=== PATIENT | male | born 1960 | race Caucasian/White ===

== ENCOUNTER 2021-05-22 19:41 | Inpatient (IN) | payer SELFPAY ==
[2021-05-22 19:46] VITALS: BMI 34.4
[2021-05-22] MEDS ORDERED: Zolpidem Tartrate 5 MG TAB PO PRN (20:12)
[2021-05-22] MEDS ORDERED: Calcium Carbonate 500 MG ChewTAB PO PRN (20:12)
[2021-05-22] MEDS ORDERED: FLU VACC QS2021-22(6MOS UP)/PF 60 MCG/0.5 ML SYRINGE IM ONE (20:15)
[2021-05-22] MEDS ORDERED: Losartan Potassium 50 MG TAB PO SCH (20:30)
[2021-05-22] MEDS ORDERED: Carvedilol 3.125 MG TAB PO SCH (20:30)
[2021-05-22] MEDS: Atorvastatin Calcium 40 MG TAB PO SCH (20:37)
[2021-05-22] MEDS ORDERED: Amlodipine 5 MG TAB PO SCH (21:00)
[2021-05-22] MEDS: hydrALAZINE 20 MG/ML VIAL SLOW IVP PRN (21:37)
[2021-05-22] MEDS ORDERED: Nitroglycerin 2% Ointment 1 INCH/1 GM Packet TOP SCH (22:15)
[2021-05-22] MEDS ORDERED: Morphine 4 MG/ML VIAL SLOW IVP SCH (22:15)
[2021-05-23] MEDS: hydrALAZINE 20 MG/ML VIAL SLOW IVP PRN ×2 (01:34→10:55)
[2021-05-23 04:26] LABS: Anion Gap 12 mmol/L (10-20); BUN (Urea Nitrogen) 13 mg/dL (8.4-25.7); Calc. Creatinine Clearance 147 mL/min (70-130); Calcium 8.9 mg/dL (7.8-10.44); Carbon Dioxide 22 mmol/L (22-29); Cardiac Risk 3.8 (Less than 4.5); Chloride 108 mmol/L (98-107); Cholesterol 171 mg/dl (< 200 Desired); Glucose 122 mg/dL (70-105); HDL Cholesterol 45 mg/dL (>60 Neg Risk); LDL Cholesterol, Calculated 107 mg/dL; Potassium 3.8 mmol/L (3.5-5.1); Sodium 138 mmol/L (136-145); Triglycerides 96 mg/dL (Less than 150)
[2021-05-23] MEDS: HYDROcodone/Acetaminophen 5/325 mg Tablet PO PRN ×3 (05:25→17:59)
[2021-05-23] MEDS ORDERED: Potassium Chloride 20 MEQ TAB PO SCH (05:45)
[2021-05-23] MEDS: Aspirin 81 mg Enteric Coated Tablet PO SCH (08:38)
[2021-05-23] MEDS: Carvedilol 3.125 MG TAB PO SCH ×2 (08:38→16:57)
[2021-05-23] MEDS: Hydrochlorothiazide 25 MG TAB PO SCH (08:38)
[2021-05-23] MEDS: Losartan Potassium 50 MG TAB PO SCH (08:38)
[2021-05-23] MEDS: Enoxaparin Sodium 40 MG/0.4 ML SYRINGE SC SCH (08:39)
[2021-05-23] MEDS ORDERED: Folic Acid 1 MG TAB PO SCH (09:00)
[2021-05-23] MEDS ORDERED: Thiamine 100 MG TAB PO SCH (09:00)
[2021-05-23] MEDS ORDERED: Multivitamin W/ Minerals 1 TAB PO SCH (09:00)
[2021-05-23] MEDS: Acetaminophen 325 MG TAB PO PRN ×2 (10:51→16:10)
[2021-05-23] MEDS: Ondansetron PF 4 MG/2 ML Vial IVP PRN (12:50)
[2021-05-23] MEDS ORDERED: Lorazepam 2 MG/ML VIAL SLOW IVP SCH (13:00)
[2021-05-23] MEDS ORDERED: hydrALAZINE 20 MG/ML VIAL SLOW IVP SCH (13:15)
[2021-05-23] MEDS ORDERED: niCARdipine 20MG In NaCl 20 MG/200 ML BAG IVPB SCH (14:00)
[2021-05-23] MEDS: niCARdipine 20MG In NaCl 20 MG/200 ML BAG IVPB SCH ×6 (14:05→22:21)
[2021-05-23] MEDS: Atorvastatin Calcium 40 MG TAB PO SCH (21:34)
[2021-05-24] MEDS: hydrALAZINE 20 MG/ML VIAL SLOW IVP PRN ×3 (05:07→12:37)
[2021-05-24] MEDS ORDERED: Lorazepam 2 MG/ML VIAL IM PRN (07:43)
[2021-05-24] MEDS ORDERED: Lorazepam 1 MG TAB PO PRN (07:43)
[2021-05-24] MEDS ORDERED: Ondansetron ODT 4 MG TAB PO PRN (07:43)
[2021-05-24] MEDS ORDERED: Electrolyte Replacement Protocol 1 EACH FS SCH (07:45)
[2021-05-24] MEDS ORDERED: Electrolyte Replacement Protocol FS PRN (08:00)
[2021-05-24 08:24] LABS: #Monocytes 0.7 10x3/uL (0.0-1.1); #Neutrophils 7.9 10x3/uL (1.5-8.4); %Basophils 0.2 % (0.0-2.0); %Eosinophils 0.1 % (0.0-6.0); %Lymphocytes 8.4 % (18.0-47.0); %Monocytes 6.9 % (0.0-10.0); %Neutrophils 84.2 % (40.0-75.0); Hemoglobin 15.5 g/dL (13.5-17.5); Mean Corpuscular HGB CONC 34.9 g/dL (32.0-36.0); Mean Corpuscular Hemoglobin 33.4 pg (27.0-33.0); Mean Corpuscular Volume 95.7 fl (81.2-95.1); Mean Platelet Volume 10.5 fl (7.4-10.4); Platelet Count 192 10x3/uL (150-450); RBC Distribution Width 11.6 % (11.5-14.5); Red Blood Cell (RBC) Count 4.64 10x6/uL (4.32-5.72); White Blood Cell (WBC) Count 9.4 10x3/uL (3.5-10.5)
[2021-05-24 09:10] LABS: ALT (SGPT) 29 U/L (8-55); AST (SGOT) 24 U/L (5-34); Albumin 4.1 g/dL (3.5-5.0); Alkaline Phosphatase 46 U/L (40-110); Anion Gap 14 mmol/L (10-20); BUN (Urea Nitrogen) 12 mg/dL (8.4-25.7); Bilirubin, Direct 0.4 mg/dL (0.1-0.3); Bilirubin, Total 1.2 mg/dL (0.2-1.2); Calc. Creatinine Clearance 151 mL/min (70-130); Carbon Dioxide 23 mmol/L (22-29); Chloride 103 mmol/L (98-107); Globulin 3.5 g/dL (2.4-3.5); Glucose 122 mg/dL (70-105); Phosphorus 3.1 mg/dL (2.3-4.7); Protein, Total 7.6 g/dL (6.0-8.3); Sodium 136 mmol/L (136-145)
[2021-05-24] MEDS: Thiamine HCl 200 MG/2 ML VIAL SLOW IVP SCH (09:30)
[2021-05-24] MEDS ORDERED: Magnesium 2 GM/50 ML 2 GM in Premix Bag 1 BAG IVPB SCH (09:30)
[2021-05-24] MEDS: Multivit, Therapeutic 1 TAB PO SCH (09:31)
[2021-05-24] MEDS: Enoxaparin Sodium 40 MG/0.4 ML SYRINGE SC SCH (09:31)
[2021-05-24] MEDS: Aspirin 81 mg Enteric Coated Tablet PO SCH (09:31)
[2021-05-24] MEDS: Losartan Potassium 50 MG TAB PO SCH (09:31)
[2021-05-24] MEDS: Folic Acid 1 MG TAB PO SCH (09:31)
[2021-05-24] MEDS: Hydrochlorothiazide 25 MG TAB PO SCH (09:32)
[2021-05-24] MEDS: Carvedilol 3.125 MG TAB PO SCH ×2 (09:32→17:57)
[2021-05-24] MEDS: HYDROcodone/Acetaminophen 5/325 mg Tablet PO PRN (09:32)
[2021-05-24] MEDS: Ondansetron PF 4 MG/2 ML Vial IVP PRN (09:56)
[2021-05-24] MEDS: niCARdipine 20MG In NaCl 20 MG/200 ML BAG IVPB SCH ×2 (14:00→19:58)
[2021-05-24] MEDS: Lorazepam 1 MG TAB PO SCH ×2 (17:58→19:59)
[2021-05-24] MEDS: Atorvastatin Calcium 40 MG TAB PO SCH (20:53)
[2021-05-24] MEDS: Acetaminophen 325 MG TAB PO PRN (21:18)
[2021-05-25] MEDS: niCARdipine 20MG In NaCl 20 MG/200 ML BAG IVPB SCH ×2 (00:07→04:42)
[2021-05-25] MEDS: Lorazepam 1 MG TAB PO SCH ×4 (03:51→20:25)
[2021-05-25 04:22] LABS: Magnesium 2.3 mg/dL (1.6-2.6)
[2021-05-25] MEDS ORDERED: Lorazepam 1 MG TAB PO PRN (07:43)
[2021-05-25] MEDS: Aspirin 81 mg Enteric Coated Tablet PO SCH (07:43)
[2021-05-25] MEDS: Carvedilol 3.125 MG TAB PO SCH ×2 (07:43→16:06)
[2021-05-25] MEDS: Losartan Potassium 50 MG TAB PO SCH (07:43)
[2021-05-25] MEDS: Hydrochlorothiazide 25 MG TAB PO SCH (07:44)
[2021-05-25] MEDS: Multivit, Therapeutic 1 TAB PO SCH (07:45)
[2021-05-25] MEDS: Folic Acid 1 MG TAB PO SCH (07:45)
[2021-05-25] MEDS: Enoxaparin Sodium 40 MG/0.4 ML SYRINGE SC SCH (07:46)
[2021-05-25] MEDS: Thiamine HCl 200 MG/2 ML VIAL SLOW IVP SCH (09:16)
[2021-05-25] MEDS: hydrALAZINE 20 MG/ML VIAL SLOW IVP PRN ×3 (12:26→22:11)
[2021-05-25] MEDS: Acetaminophen 325 MG TAB PO PRN (12:26)
[2021-05-25] MEDS: HYDROcodone/Acetaminophen 5/325 mg Tablet PO PRN ×2 (14:00→20:24)
[2021-05-25] MEDS ORDERED: Carvedilol 3.125 MG TAB PO SCH (18:30)
[2021-05-25] MEDS: Atorvastatin Calcium 40 MG TAB PO SCH (20:24)
[2021-05-26] MEDS: HYDROcodone/Acetaminophen 5/325 mg Tablet PO PRN ×3 (03:37→17:45)
[2021-05-26] MEDS: hydrALAZINE 20 MG/ML VIAL SLOW IVP PRN ×3 (03:38→20:12)
[2021-05-26 03:40] LABS: ALT (SGPT) 24 U/L (8-55); AST (SGOT) 23 U/L (5-34); Alkaline Phosphatase 43 U/L (40-110); Anion Gap 14 mmol/L (10-20); BUN (Urea Nitrogen) 19 mg/dL (8.4-25.7); Calc. Creatinine Clearance 132 mL/min (70-130); Calcium 8.8 mg/dL (7.8-10.44); Carbon Dioxide 24 mmol/L (22-29); Chloride 100 mmol/L (98-107); Globulin 3.4 g/dL (2.4-3.5); Glucose 117 mg/dL (70-105); Magnesium 2.1 mg/dL (1.6-2.6); Potassium 3.7 mmol/L (3.5-5.1); Protein, Total 7.4 g/dL (6.0-8.3); Sodium 134 mmol/L (136-145)
[2021-05-26 03:47] LABS: %Basophils 0.3 % (0.0-2.0); %Lymphocytes 11.5 % (18.0-47.0); %Monocytes 11.1 % (0.0-10.0); %Neutrophils 76.8 % (40.0-75.0); Hemoglobin 16.5 g/dL (13.5-17.5); Mean Corpuscular HGB CONC 35.3 g/dL (32.0-36.0); Mean Corpuscular Hemoglobin 33.5 pg (27.0-33.0); Mean Corpuscular Volume 94.7 fl (81.2-95.1); Mean Platelet Volume 10.4 fl (7.4-10.4); Platelet Count 228 10x3/uL (150-450); RBC Distribution Width 11.5 % (11.5-14.5); Red Blood Cell (RBC) Count 4.93 10x6/uL (4.32-5.72); White Blood Cell (WBC) Count 9.2 10x3/uL (3.5-10.5)
[2021-05-26 03:59] LABS: Bilirubin, Total 1.4 mg/dL (0.2-1.2)
[2021-05-26] MEDS: Lorazepam 1 MG TAB PO SCH (05:05)
[2021-05-26] MEDS ORDERED: Nitroglycerin 2% Ointment 1 INCH/1 GM Packet ONE (05:17)
[2021-05-26] MEDS ORDERED: Haloperidol Lactate 5 MG/ML VIAL IM SCH (05:30)
[2021-05-26] MEDS ORDERED: Nitroglycerin 2% Ointment 1 INCH/1 GM Packet TOP SCH (05:30)
[2021-05-26] MEDS: Carvedilol 6.25 MG TAB PO SCH ×2 (07:32→16:09)
[2021-05-26] MEDS ORDERED: Lorazepam 1 MG TAB PO PRN (07:43)
[2021-05-26] MEDS: Losartan Potassium 50 MG TAB PO SCH (08:50)
[2021-05-26] MEDS: Lorazepam 0.5 MG TAB PO SCH ×4 (08:50→20:12)
[2021-05-26] MEDS: Enoxaparin Sodium 40 MG/0.4 ML SYRINGE SC SCH (08:51)
[2021-05-26] MEDS: Hydrochlorothiazide 25 MG TAB PO SCH (08:51)
[2021-05-26] MEDS: Folic Acid 1 MG TAB PO SCH (08:51)
[2021-05-26] MEDS: Thiamine HCl 200 MG/2 ML VIAL SLOW IVP SCH (08:51)
[2021-05-26] MEDS: Multivit, Therapeutic 1 TAB PO SCH (08:54)
[2021-05-26] MEDS: Aspirin 81 mg Enteric Coated Tablet PO SCH (08:54)
[2021-05-26] MEDS ORDERED: Hydrochlorothiazide 25 MG TAB PO SCH ×2 (14:36→15:00)
[2021-05-26] MEDS ORDERED: Amlodipine 5 MG TAB PO SCH (18:00)
[2021-05-26] MEDS: niCARdipine 25 MG in Sodium Chloride 0.9% 250 ML 250 ML IVPB SCH ×2 (18:10→21:57)
[2021-05-26] MEDS: Atorvastatin Calcium 40 MG TAB PO SCH (20:12)
[2021-05-27] MEDS: niCARdipine 25 MG in Sodium Chloride 0.9% 250 ML 250 ML IVPB SCH ×12 (00:13→22:33)
[2021-05-27] MEDS: hydrALAZINE 20 MG/ML VIAL SLOW IVP PRN ×3 (00:14→21:02)
[2021-05-27] MEDS: Lorazepam 0.5 MG TAB PO SCH (03:50)
[2021-05-27] MEDS: traZODone HCl 50 MG TAB PO PRN ×2 (03:50→21:01)
[2021-05-27] MEDS: Carvedilol 6.25 MG TAB PO SCH ×2 (07:50→16:20)
[2021-05-27] MEDS: Enoxaparin Sodium 40 MG/0.4 ML SYRINGE SC SCH (07:53)
[2021-05-27] MEDS: Aspirin 81 mg Enteric Coated Tablet PO SCH (07:53)
[2021-05-27] MEDS: Hydrochlorothiazide 25 MG TAB PO SCH (07:54)
[2021-05-27] MEDS: Losartan Potassium 50 MG TAB PO SCH (07:54)
[2021-05-27] MEDS: Multivit, Therapeutic 1 TAB PO SCH (07:54)
[2021-05-27] MEDS: Folic Acid 1 MG TAB PO SCH (07:54)
[2021-05-27 07:59] LABS: ALT (SGPT) 25 U/L (8-55); AST (SGOT) 25 U/L (5-34); Albumin 3.9 g/dL (3.5-5.0); Alkaline Phosphatase 36 U/L (40-110); Anion Gap 14 mmol/L (10-20); BUN (Urea Nitrogen) 22 mg/dL (8.4-25.7); Bilirubin, Total 1.1 mg/dL (0.2-1.2); Calc. Creatinine Clearance 144 mL/min (70-130); Calcium 8.5 mg/dL (7.8-10.44); Carbon Dioxide 21 mmol/L (22-29); Chloride 99 mmol/L (98-107); Globulin 3.2 g/dL (2.4-3.5); Glucose 108 mg/dL (70-105); Potassium 3.1 mmol/L (3.5-5.1); Protein, Total 7.1 g/dL (6.0-8.3); Sodium 131 mmol/L (136-145)
[2021-05-27] MEDS ORDERED: Potassium Bicarbonate/Cit Ac 20 MEQ TAB PO SCH (08:30)
[2021-05-27 08:42] LABS: Acetaminophen Less than 6.0 mcg/mL (10.0-30.0); Alcohol Less than 10 mg/dL (Less than 10); Salicylate Less than 8.0 mg/dL (15.0-30.0)
[2021-05-27] MEDS: Thiamine 100 MG TAB PO SCH (08:53)
[2021-05-27] MEDS: Lorazepam 0.5 MG TAB PO PRN (08:54)
[2021-05-27] MEDS ORDERED: Amlodipine 5 MG TAB PO SCH ×2 (09:00→10:00)
[2021-05-27] MEDS: HYDROcodone/Acetaminophen 5/325 mg Tablet PO PRN ×2 (11:45→16:20)
[2021-05-27] MEDS ORDERED: Potassium Chloride 20 MEQ TAB PO SCH (18:00)
[2021-05-27] MEDS: Atorvastatin Calcium 40 MG TAB PO SCH (21:01)
[2021-05-28] MEDS: niCARdipine 25 MG in Sodium Chloride 0.9% 250 ML 250 ML IVPB SCH ×5 (00:21→08:21)
[2021-05-28] MEDS: Lorazepam 0.5 MG TAB PO PRN (01:45)
[2021-05-28] MEDS ORDERED: Haloperidol Lactate 5 MG/ML VIAL IM SCH (03:00)
[2021-05-28] MEDS ORDERED: Lorazepam 2 MG/ML VIAL SLOW IVP SCH (03:00)
[2021-05-28 03:59] LABS: Anion Gap 13 mmol/L (10-20); BUN (Urea Nitrogen) 21 mg/dL (8.4-25.7); Calc. Creatinine Clearance 153 mL/min (70-130); Calcium 8.3 mg/dL (7.8-10.44); Carbon Dioxide 21 mmol/L (22-29); Chloride 104 mmol/L (98-107); Glucose 115 mg/dL (70-105); Potassium 3.2 mmol/L (3.5-5.1); Sodium 135 mmol/L (136-145)
[2021-05-28] MEDS ORDERED: Magnesium 2 GM/50 ML 2 GM in Premix Bag 1 BAG IVPB SCH (04:30)
[2021-05-28] MEDS ORDERED: Potassium Chloride 20 MEQ TAB PO SCH (04:45)
[2021-05-28] MEDS ORDERED: Lorazepam 2 MG/ML VIAL SLOW IVP PRN (04:48)
[2021-05-28] MEDS ORDERED: cloNIDine 0.1mg/24 Hour PATCH TD SCH (05:00)
[2021-05-28] MEDS: Amlodipine 10 MG TAB PO SCH (08:12)
[2021-05-28] MEDS: Aspirin 81 mg Enteric Coated Tablet PO SCH (08:14)
[2021-05-28] MEDS: Enoxaparin Sodium 40 MG/0.4 ML SYRINGE SC SCH (08:15)
[2021-05-28] MEDS: Folic Acid 1 MG TAB PO SCH (08:15)
[2021-05-28] MEDS: Hydrochlorothiazide 25 MG TAB PO SCH (08:16)
[2021-05-28] MEDS: Losartan Potassium 50 MG TAB PO SCH (08:17)
[2021-05-28] MEDS: Multivit, Therapeutic 1 TAB PO SCH (08:18)
[2021-05-28] MEDS: Thiamine 100 MG TAB PO SCH (08:19)
[2021-05-28] MEDS: Carvedilol 6.25 MG TAB PO SCH ×2 (08:35→17:51)
[2021-05-28] MEDS ORDERED: Carvedilol 12.5 MG TAB PO SCH (09:45)
[2021-05-28] MEDS ORDERED: chlordiazePOXIDE HCl 5 MG CAP PO SCH (10:00)
[2021-05-28] MEDS ORDERED: Dexmedetomidine In 0.9 % NaCl 100 ML ONE (10:10)
[2021-05-28] MEDS: Dexmedetomidine In 0.9 % NaCl 100 ML IVPB SCH ×2 (10:30→23:25)
[2021-05-28 11:56] LABS: Potassium 3.2 mmol/L (3.5-5.1)
[2021-05-28] MEDS: chlordiazePOXIDE HCl 5 MG CAP PO SCH ×2 (14:15→21:26)
[2021-05-28] MEDS ORDERED: Potassium Bicarbonate/Cit Ac 20 MEQ TAB PO SCH ×2 (14:15→19:30)
[2021-05-28] MEDS ORDERED: Electrolyte Replacement Protocol 1 EACH FS SCH (18:30)
[2021-05-28] MEDS ORDERED: Electrolyte Replacement Protocol FS PRN (18:45)
[2021-05-28] MEDS: Atorvastatin Calcium 40 MG TAB PO SCH (21:26)
[2021-05-29] MEDS: hydrALAZINE 20 MG/ML VIAL SLOW IVP PRN ×3 (03:43→19:56)
[2021-05-29 04:36] LABS: Anion Gap 11 mmol/L (10-20); BUN (Urea Nitrogen) 18 mg/dL (8.4-25.7); Calc. Creatinine Clearance 147 mL/min (70-130); Calcium 8.7 mg/dL (7.8-10.44); Carbon Dioxide 25 mmol/L (22-29); Chloride 104 mmol/L (98-107); Glucose 92 mg/dL (70-105); Magnesium 2.3 mg/dL (1.6-2.6); Potassium 3.7 mmol/L (3.5-5.1); Sodium 136 mmol/L (136-145)
[2021-05-29] MEDS: Dexmedetomidine In 0.9 % NaCl 100 ML IVPB SCH (09:21)
[2021-05-29] MEDS: Enoxaparin Sodium 40 MG/0.4 ML SYRINGE SC SCH (09:21)
[2021-05-29] MEDS: Aspirin 81 mg Enteric Coated Tablet PO SCH (09:22)
[2021-05-29] MEDS: Hydrochlorothiazide 25 MG TAB PO SCH (09:22)
[2021-05-29] MEDS: Carvedilol 6.25 MG TAB PO SCH ×2 (09:22→16:03)
[2021-05-29] MEDS: Multivit, Therapeutic 1 TAB PO SCH (09:22)
[2021-05-29] MEDS: Folic Acid 1 MG TAB PO SCH (09:22)
[2021-05-29] MEDS: Losartan Potassium 50 MG TAB PO SCH (09:22)
[2021-05-29] MEDS: chlordiazePOXIDE HCl 5 MG CAP PO SCH ×3 (09:23→19:29)
[2021-05-29] MEDS: Amlodipine 10 MG TAB PO SCH (09:23)
[2021-05-29] MEDS: Thiamine 100 MG TAB PO SCH (09:24)
[2021-05-29] MEDS ORDERED: Electrolyte Replacement Protocol 1 EACH FS SCH (10:30)
[2021-05-29] MEDS: Atorvastatin Calcium 40 MG TAB PO SCH (19:29)
[2021-05-30] MEDS: hydrALAZINE 20 MG/ML VIAL SLOW IVP PRN ×2 (05:38→21:22)
[2021-05-30] MEDS: Carvedilol 6.25 MG TAB PO SCH ×2 (07:58→16:40)
[2021-05-30] MEDS: Aspirin 81 mg Enteric Coated Tablet PO SCH (08:00)
[2021-05-30] MEDS: Folic Acid 1 MG TAB PO SCH (08:01)
[2021-05-30] MEDS: Amlodipine 10 MG TAB PO SCH (08:01)
[2021-05-30] MEDS: Multivit, Therapeutic 1 TAB PO SCH (08:01)
[2021-05-30] MEDS: chlordiazePOXIDE HCl 5 MG CAP PO SCH ×3 (08:02→21:22)
[2021-05-30] MEDS: Enoxaparin Sodium 40 MG/0.4 ML SYRINGE SC SCH (08:03)
[2021-05-30] MEDS: Losartan Potassium 50 MG TAB PO SCH (08:04)
[2021-05-30] MEDS: Hydrochlorothiazide 25 MG TAB PO SCH (08:04)
[2021-05-30] MEDS: Acetaminophen 325 MG TAB PO PRN (08:05)
[2021-05-30] MEDS: Thiamine 100 MG TAB PO SCH (08:36)
[2021-05-30 08:43] LABS: #Basophils 0.1 10x3/uL (0.0-0.2); #Eosinphils 0.1 10x3/uL (0.0-0.5); #Monocytes 0.8 10x3/uL (0.0-1.1); #Neutrophils 6.9 10x3/uL (1.5-8.4); %Basophils 0.8 % (0.0-2.0); %Eosinophils 0.6 % (0.0-6.0); %Monocytes 8.6 % (0.0-10.0); %Neutrophils 74.8 % (40.0-75.0); Hemoglobin 15.2 g/dL (13.5-17.5); Mean Corpuscular HGB CONC 35.4 g/dL (32.0-36.0); Mean Corpuscular Hemoglobin 33.2 pg (27.0-33.0); Mean Corpuscular Volume 93.7 fl (81.2-95.1); Mean Platelet Volume 10.8 fl (7.4-10.4); Platelet Count 237 10x3/uL (150-450); RBC Distribution Width 11.3 % (11.5-14.5); Red Blood Cell (RBC) Count 4.58 10x6/uL (4.32-5.72); White Blood Cell (WBC) Count 9.3 10x3/uL (3.5-10.5)
[2021-05-30 09:04] LABS: ALT (SGPT) 38 U/L (8-55); AST (SGOT) 33 U/L (5-34); Albumin 3.7 g/dL (3.5-5.0); Alkaline Phosphatase 38 U/L (40-110); Anion Gap 13 mmol/L (10-20); BUN (Urea Nitrogen) 17 mg/dL (8.4-25.7); Bilirubin, Total 1.1 mg/dL (0.2-1.2); Calc. Creatinine Clearance 144 mL/min (70-130); Calcium 8.8 mg/dL (7.8-10.44); Carbon Dioxide 24 mmol/L (22-29); Chloride 102 mmol/L (98-107); Globulin 3.5 g/dL (2.4-3.5); Glucose 130 mg/dL (70-105); Magnesium 2.1 mg/dL (1.6-2.6); Potassium 3.5 mmol/L (3.5-5.1); Protein, Total 7.2 g/dL (6.0-8.3); Sodium 135 mmol/L (136-145)
[2021-05-30] MEDS ORDERED: Potassium Chloride 20 MEQ TAB PO SCH (10:00)
[2021-05-30 15:25] LABS: Potassium 3.6 mmol/L (3.5-5.1)
[2021-05-30] MEDS: Atorvastatin Calcium 40 MG TAB PO SCH (21:22)
[2021-05-30] MEDS ORDERED: hydrALAZINE 20 MG/ML VIAL SLOW IVP SCH (23:59)
[2021-05-31] MEDS: niCARdipine 25 MG in Sodium Chloride 0.9% 250 ML 250 ML IVPB SCH (01:37)
[2021-05-31 04:06] LABS: Anion Gap 13 mmol/L (10-20); BUN (Urea Nitrogen) 17 mg/dL (8.4-25.7); Calc. Creatinine Clearance 158 mL/min (70-130); Calcium 8.9 mg/dL (7.8-10.44); Carbon Dioxide 22 mmol/L (22-29); Chloride 104 mmol/L (98-107); Glucose 101 mg/dL (70-105); Potassium 3.7 mmol/L (3.5-5.1); Sodium 135 mmol/L (136-145)
[2021-05-31] MEDS ORDERED: Magnesium 2 GM/50 ML 2 GM in Premix Bag 1 BAG IVPB SCH (08:00)
[2021-05-31] MEDS: Losartan Potassium 50 MG TAB PO SCH (08:44)
[2021-05-31] MEDS: Hydrochlorothiazide 25 MG TAB PO SCH (08:44)
[2021-05-31] MEDS: Amlodipine 10 MG TAB PO SCH (08:45)
[2021-05-31] MEDS: chlordiazePOXIDE HCl 5 MG CAP PO SCH ×3 (08:47→21:02)
[2021-05-31] MEDS: Folic Acid 1 MG TAB PO SCH (08:47)
[2021-05-31] MEDS: Acetaminophen 325 MG TAB PO PRN (08:47)
[2021-05-31] MEDS: Thiamine 100 MG TAB PO SCH (08:48)
[2021-05-31] MEDS: Carvedilol 6.25 MG TAB PO SCH ×2 (08:48→17:21)
[2021-05-31] MEDS: Multivit, Therapeutic 1 TAB PO SCH (11:12)
[2021-05-31] MEDS: hydrALAZINE 25 MG TAB PO SCH ×2 (14:52→21:02)
[2021-05-31] MEDS: Atorvastatin Calcium 40 MG TAB PO SCH (21:02)
[2021-06-01 03:53] LABS: Anion Gap 13 mmol/L (10-20); BUN (Urea Nitrogen) 17 mg/dL (8.4-25.7); Calc. Creatinine Clearance 153 mL/min (70-130); Calcium 8.9 mg/dL (7.8-10.44); Carbon Dioxide 23 mmol/L (22-29); Chloride 103 mmol/L (98-107); Glucose 109 mg/dL (70-105); Magnesium 1.9 mg/dL (1.6-2.6); Phosphorus 3.6 mg/dL (2.3-4.7); Potassium 3.7 mmol/L (3.5-5.1); Sodium 135 mmol/L (136-145)
[2021-06-01] MEDS ORDERED: Magnesium 2 GM/50 ML 2 GM in Premix Bag 1 BAG IVPB SCH (08:00)
[2021-06-01] MEDS: Carvedilol 6.25 MG TAB PO SCH ×2 (09:03→16:59)
[2021-06-01] MEDS: chlordiazePOXIDE HCl 5 MG CAP PO SCH ×4 (09:04→22:19)
[2021-06-01] MEDS: Amlodipine 10 MG TAB PO SCH (09:04)
[2021-06-01] MEDS: hydrALAZINE 25 MG TAB PO SCH ×4 (09:04→22:19)
[2021-06-01] MEDS: Hydrochlorothiazide 25 MG TAB PO SCH (09:04)
[2021-06-01] MEDS: Folic Acid 1 MG TAB PO SCH (09:04)
[2021-06-01] MEDS: Multivit, Therapeutic 1 TAB PO SCH (09:04)
[2021-06-01] MEDS: Losartan Potassium 50 MG TAB PO SCH (09:06)
[2021-06-01] MEDS: Thiamine 100 MG TAB PO SCH (09:06)
[2021-06-01] MEDS: Atorvastatin Calcium 40 MG TAB PO SCH ×2 (22:13→22:18)
[2021-06-01] MEDS ORDERED: Calcium Carbonate 500 MG ChewTAB PO SCH (22:15)
[2021-06-01] MEDS ORDERED: Sterile Water 10 ML ONE (23:38)
[2021-06-02 05:04] LABS: Magnesium 1.8 mg/dL (1.6-2.6)
[2021-06-02] MEDS: Carvedilol 25 MG TAB PO SCH ×2 (08:25→15:49)
[2021-06-02] MEDS: Thiamine 100 MG TAB PO SCH (08:25)
[2021-06-02] MEDS: Folic Acid 1 MG TAB PO SCH (08:25)
[2021-06-02] MEDS: chlordiazePOXIDE HCl 5 MG CAP PO SCH ×3 (08:25→20:36)
[2021-06-02] MEDS: Multivit, Therapeutic 1 TAB PO SCH (08:25)
[2021-06-02] MEDS: Hydrochlorothiazide 25 MG TAB PO SCH (08:25)
[2021-06-02] MEDS: Amlodipine 10 MG TAB PO SCH (08:25)
[2021-06-02] MEDS: Losartan Potassium 50 MG TAB PO SCH (08:25)
[2021-06-02] MEDS: hydrALAZINE 25 MG TAB PO SCH ×3 (08:26→20:36)
[2021-06-02] MEDS ORDERED: Magnesium 2 GM/50 ML 2 GM in Premix Bag 1 BAG IVPB SCH (09:00)
[2021-06-02] MEDS: Atorvastatin Calcium 40 MG TAB PO SCH (20:35)
[2021-06-03] MEDS: Multivit, Therapeutic 1 TAB PO SCH (09:25)
[2021-06-03] MEDS: hydrALAZINE 25 MG TAB PO SCH ×3 (09:25→22:55)
[2021-06-03] MEDS: Thiamine 100 MG TAB PO SCH (09:26)
[2021-06-03] MEDS: Carvedilol 25 MG TAB PO SCH ×2 (09:26→18:23)
[2021-06-03] MEDS: Losartan Potassium 50 MG TAB PO SCH (09:26)
[2021-06-03] MEDS: Amlodipine 10 MG TAB PO SCH (09:26)
[2021-06-03] MEDS: Hydrochlorothiazide 25 MG TAB PO SCH (09:26)
[2021-06-03] MEDS: Folic Acid 1 MG TAB PO SCH (09:26)
[2021-06-03] MEDS: Atorvastatin Calcium 40 MG TAB PO SCH (22:56)
[2021-06-04] MEDS: Multivit, Therapeutic 1 TAB PO SCH (09:02)
[2021-06-04] MEDS: Losartan Potassium 50 MG TAB PO SCH (09:02)
[2021-06-04] MEDS: Folic Acid 1 MG TAB PO SCH (09:02)
[2021-06-04] MEDS: Carvedilol 25 MG TAB PO SCH ×2 (09:02→16:26)
[2021-06-04] MEDS: hydrALAZINE 25 MG TAB PO SCH ×3 (09:02→20:55)
[2021-06-04] MEDS: Thiamine 100 MG TAB PO SCH (09:03)
[2021-06-04] MEDS: Hydrochlorothiazide 25 MG TAB PO SCH (09:03)
[2021-06-04] MEDS: Amlodipine 10 MG TAB PO SCH (09:03)
[2021-06-04] MEDS: Atorvastatin Calcium 40 MG TAB PO SCH (20:55)
[2021-06-05] MEDS: Multivit, Therapeutic 1 TAB PO SCH (09:19)
[2021-06-05] MEDS: hydrALAZINE 25 MG TAB PO SCH ×3 (09:19→20:11)
[2021-06-05] MEDS: Carvedilol 25 MG TAB PO SCH ×2 (09:19→16:12)
[2021-06-05] MEDS: Thiamine 100 MG TAB PO SCH (09:19)
[2021-06-05] MEDS: Hydrochlorothiazide 25 MG TAB PO SCH (09:19)
[2021-06-05] MEDS: Folic Acid 1 MG TAB PO SCH (09:19)
[2021-06-05] MEDS: Amlodipine 10 MG TAB PO SCH (09:20)
[2021-06-05] MEDS: Losartan Potassium 50 MG TAB PO SCH (09:20)
[2021-06-05] MEDS: Atorvastatin Calcium 40 MG TAB PO SCH (20:11)
[2021-06-06] MEDS: Thiamine 100 MG TAB PO SCH (08:11)
[2021-06-06] MEDS: Losartan Potassium 50 MG TAB PO SCH (08:11)
[2021-06-06] MEDS: Multivit, Therapeutic 1 TAB PO SCH (08:11)
[2021-06-06] MEDS: Folic Acid 1 MG TAB PO SCH (08:11)
[2021-06-06] MEDS: hydrALAZINE 25 MG TAB PO SCH ×3 (08:11→21:23)
[2021-06-06] MEDS: Amlodipine 10 MG TAB PO SCH (08:11)
[2021-06-06] MEDS: Hydrochlorothiazide 25 MG TAB PO SCH (08:11)
[2021-06-06] MEDS: Carvedilol 25 MG TAB PO SCH ×2 (08:11→16:27)
[2021-06-06] MEDS: Atorvastatin Calcium 40 MG TAB PO SCH (21:24)
[2021-06-07] MEDS: Thiamine 100 MG TAB PO SCH (10:01)
[2021-06-07] MEDS: hydrALAZINE 25 MG TAB PO SCH ×3 (10:01→20:52)
[2021-06-07] MEDS: Multivit, Therapeutic 1 TAB PO SCH (10:01)
[2021-06-07] MEDS: Carvedilol 25 MG TAB PO SCH ×2 (10:02→16:03)
[2021-06-07] MEDS: Losartan Potassium 50 MG TAB PO SCH (10:02)
[2021-06-07] MEDS: Folic Acid 1 MG TAB PO SCH (10:02)
[2021-06-07] MEDS: Hydrochlorothiazide 25 MG TAB PO SCH (10:02)
[2021-06-07] MEDS: Amlodipine 10 MG TAB PO SCH (10:02)
[2021-06-07] MEDS: Atorvastatin Calcium 40 MG TAB PO SCH (20:52)
[2021-06-08] MEDS: Amlodipine 10 MG TAB PO SCH (10:10)
[2021-06-08] MEDS: Thiamine 100 MG TAB PO SCH (10:11)
[2021-06-08] MEDS: Hydrochlorothiazide 25 MG TAB PO SCH (10:11)
[2021-06-08] MEDS: Carvedilol 25 MG TAB PO SCH (10:11)
[2021-06-08] MEDS: Folic Acid 1 MG TAB PO SCH (10:11)
[2021-06-08] MEDS: hydrALAZINE 25 MG TAB PO SCH ×2 (10:11→20:12)
[2021-06-08] MEDS: Multivit, Therapeutic 1 TAB PO SCH (10:12)
[2021-06-08] MEDS: Losartan Potassium 50 MG TAB PO SCH (10:12)
[2021-06-08] MEDS: Atorvastatin Calcium 40 MG TAB PO SCH (20:12)
[2021-06-09] MEDS: Losartan Potassium 50 MG TAB PO SCH (09:12)
[2021-06-09] MEDS: Carvedilol 25 MG TAB PO SCH ×3 (09:12→18:00)
[2021-06-09] MEDS: Hydrochlorothiazide 25 MG TAB PO SCH (09:12)
[2021-06-09] MEDS: Thiamine 100 MG TAB PO SCH (09:12)
[2021-06-09] MEDS: Multivit, Therapeutic 1 TAB PO SCH (09:12)
[2021-06-09] MEDS: Amlodipine 10 MG TAB PO SCH (09:12)
[2021-06-09] MEDS: Folic Acid 1 MG TAB PO SCH (09:12)
[2021-06-09] MEDS: hydrALAZINE 25 MG TAB PO SCH ×4 (10:31→20:24)
[2021-06-09] MEDS: Atorvastatin Calcium 40 MG TAB PO SCH (20:24)
[2021-06-10] MEDS: Acetaminophen 325 MG TAB PO PRN (01:06)
[2021-06-10] MEDS: Amlodipine 10 MG TAB PO SCH (08:06)
[2021-06-10] MEDS: Carvedilol 25 MG TAB PO SCH ×2 (08:07→16:43)
[2021-06-10] MEDS: Losartan Potassium 50 MG TAB PO SCH (08:07)
[2021-06-10] MEDS: Thiamine 100 MG TAB PO SCH (08:07)
[2021-06-10] MEDS: Folic Acid 1 MG TAB PO SCH (08:07)
[2021-06-10] MEDS: Hydrochlorothiazide 25 MG TAB PO SCH (08:07)
[2021-06-10] MEDS: hydrALAZINE 25 MG TAB PO SCH ×3 (08:07→21:01)
[2021-06-10] MEDS: Multivit, Therapeutic 1 TAB PO SCH (08:07)
[2021-06-10 09:59] LABS: #Basophils 0.1 10x3/uL (0.0-0.2); #Eosinphils 0.2 10x3/uL (0.0-0.5); #Monocytes 0.4 10x3/uL (0.0-1.1); #Neutrophils 4.7 10x3/uL (1.5-8.4); %Basophils 0.9 % (0.0-2.0); %Eosinophils 2.7 % (0.0-6.0); %Lymphocytes 15.7 % (18.0-47.0); %Monocytes 5.7 % (0.0-10.0); %Neutrophils 74.7 % (40.0-75.0); Hemoglobin 12.9 g/dL (13.5-17.5); Mean Corpuscular HGB CONC 35.1 g/dL (32.0-36.0); Mean Corpuscular Hemoglobin 33.4 pg (27.0-33.0); Mean Corpuscular Volume 95.3 fl (81.2-95.1); Mean Platelet Volume 11.3 fl (7.4-10.4); Platelet Count 213 10x3/uL (150-450); RBC Distribution Width 11.1 % (11.5-14.5); Red Blood Cell (RBC) Count 3.86 10x6/uL (4.32-5.72); White Blood Cell (WBC) Count 6.3 10x3/uL (3.5-10.5)
[2021-06-10] MEDS: Atorvastatin Calcium 40 MG TAB PO SCH (21:01)
[2021-06-11] MEDS: Thiamine 100 MG TAB PO SCH (08:31)
[2021-06-11] MEDS: Losartan Potassium 50 MG TAB PO SCH (08:31)
[2021-06-11] MEDS: Hydrochlorothiazide 25 MG TAB PO SCH (08:31)
[2021-06-11] MEDS: Amlodipine 10 MG TAB PO SCH (08:31)
[2021-06-11] MEDS: Folic Acid 1 MG TAB PO SCH (08:31)
[2021-06-11] MEDS: Carvedilol 25 MG TAB PO SCH ×2 (08:31→16:40)
[2021-06-11] MEDS: hydrALAZINE 25 MG TAB PO SCH ×3 (08:31→20:34)
[2021-06-11] MEDS: Multivit, Therapeutic 1 TAB PO SCH (08:31)
[2021-06-11] MEDS: Atorvastatin Calcium 40 MG TAB PO SCH (20:36)
[2021-06-12] MEDS: Carvedilol 25 MG TAB PO SCH ×2 (08:29→16:27)
[2021-06-12] MEDS: Folic Acid 1 MG TAB PO SCH (08:29)
[2021-06-12] MEDS: Hydrochlorothiazide 25 MG TAB PO SCH (08:29)
[2021-06-12] MEDS: Amlodipine 10 MG TAB PO SCH (08:29)
[2021-06-12] MEDS: hydrALAZINE 25 MG TAB PO SCH ×3 (08:29→20:06)
[2021-06-12] MEDS: Losartan Potassium 50 MG TAB PO SCH (08:30)
[2021-06-12] MEDS: Multivit, Therapeutic 1 TAB PO SCH (08:30)
[2021-06-12] MEDS: Thiamine 100 MG TAB PO SCH (08:30)
[2021-06-12] MEDS: Atorvastatin Calcium 40 MG TAB PO SCH (20:07)
[2021-06-13 08:51] VITALS: BP 144/84; TEMP 98.2
[2021-06-13] MEDS: Hydrochlorothiazide 25 MG TAB PO SCH (08:55)
[2021-06-13] MEDS: Carvedilol 25 MG TAB PO SCH (08:55)
[2021-06-13] MEDS: Losartan Potassium 50 MG TAB PO SCH (08:55)
[2021-06-13] MEDS: Multivit, Therapeutic 1 TAB PO SCH (08:55)
[2021-06-13] MEDS: Amlodipine 10 MG TAB PO SCH (08:55)
[2021-06-13] MEDS: Folic Acid 1 MG TAB PO SCH (08:56)
[2021-06-13] MEDS: Thiamine 100 MG TAB PO SCH (08:56)
[2021-06-13] MEDS: hydrALAZINE 25 MG TAB PO SCH (08:56)
[2021-06-14] MEDS ORDERED: Aspirin 81 mg Enteric Coated Tablet PO SCH (09:00)
== END 2021-06-13 10:53 | DRG 64 ==
LOC: CSHTELE 19:41 → INTOOBSV 19:41 → CSHIMCU 05-23 13:56 → OBSVTOIN 05-23 19:11 → CSHIMCU 05-26 19:47 → CSHTELE 06-01 20:51
PROVIDERS: ADMIT Student in an Organized Health Care Education/Training Program; ATTEND Hospitalist
DX: I63.81 Other cerebral infarction due to occlusion or stenosis of small artery (principal); G93.41 Metabolic encephalopathy; I61.8 Other nontraumatic intracerebral hemorrhage; I16.1 Hypertensive emergency; R45.851 Suicidal ideations; F10.139 Alcohol abuse with withdrawal, unspecified; I10 Essential (primary) hypertension; Z91.19 Patient's noncompliance with other medical treatment and regimen; R42 Dizziness and giddiness; I16.0 Hypertensive urgency
CPT/HCPCS: 36415; 36416; 70450; 70551; 70553; 80048; 80053; 80061; 80307; 82248; 83735; 84100; 84132; 84443; 84484; 85025; 93306; 93880; 94760; J0360; J1630; J1650; J2060; J2270; J2405; J3411; J3475; J7050